=== PATIENT | male | born 1970 | race Caucasian/White ===

== ENCOUNTER 2017-09-12 12:37 | Observation (INO) | payer OTHER ==
[~2017-09-12] VITALS: Ht 182.9 cm; Wt 98.1 kg
[~2017-09-12 12:37] MED LIST: GLUC500C5 PO; MULTCAP PO; TAMBOCOR PO; TYLE325T5 PO; XARE20TA PO; [UNRECOGNIZED DRUG - CODE] PO
[2017-09-12] MEDS ORDERED: ONDANSETRON 4 MG TAB (S0181) PO PRN (13:00)
[2017-09-12] MEDS ORDERED: ACETAMINOPHEN TAB 650MG DOSE (2X325MG) PO PRN (13:00)
[2017-09-12 15:15] VITALS: BP 150/96
[2017-09-12] MEDS ORDERED: FLUO20CA19 PO (16:42)
[2017-09-12] MEDS ORDERED: ATOR40TA75 PO (16:42)
[2017-09-12] MEDS ORDERED: NITR4TASL SL (16:42)
[2017-09-12 17:03] VITALS: BP 172/89
[2017-09-12] MEDS ORDERED: NITROGLYCERIN 0.4 MG SUBL TABLET SL PRN (17:30)
[2017-09-12] MEDS: ASPIRIN 81 MG ENTERIC TAB PO SCH (18:00)
--- NOTE | 2017-09-12 18:34 | CR ---
DATE OF CONSULTATION: 09/12/2017 REFERRING PROVIDER: Dr. Sanya Ramsay. PRIMARY FISH CULTURIST: Dr. Dhruv Moreno. REASON FOR CONSULTATION: Syncope, probable pacemaker malfunctioning. HISTORY OF PRESENT ILLNESS: A 46-year-old male with a history of paroxysmal atrial fibrillation and permanent pacemaker implantation on 08/30/2014, by Dr. Moreno. Has been doing well until yesterday in the evening at 8:15-8:30, when he suddenly passed out for 30 seconds without any actual symptoms of chest pain or palpitations. He woke up , then collapsed again. Since those two episodes, according to the , his mental status has changed. The patient has been delusional and his conversations have not been appropriate. He was brought to the emergency room (ER) at [facility] earlier this morning and his blood pressure was markedly elevated according to his . He had a chest CT as well as chest x-ray done, and they were benign. The patient was transferred to [facility] in order to check the pacemaker and his syncope. They thought that the pacemaker was having problem with sensing. He was admitted temporarily to the intensive care unit (ICU) then at this present time, he is in the progressive care unit (PCU). Cardiology consult was called. Case was discussed earlier with the ER provider from [facility]. According to his note, his blood pressure upon arrival there was 185/111, with a pulse of 117, respirations 18, and his temperature was 99.8 degrees Fahrenheit with an oxygen saturation of 97% on room air. His complete blood count (CBC) was normal, and his basic metabolic panel (BMP) revealed a serum potassium of 3.4 with a serum glucose of 123. Mr. Shaka Gudino was lying supine in bed in no acute distress at rest when I saw him, and his was at bedside, as well as a nurse. His responses are not quite appropriate and according to the , there was no loss of sphincter control. She is not quite sure whether he had seizures or not. Prior to that event yesterday, the patient was doing fine without chest pain or shortness of breath, but was supposed to see electrophysiology (EP) for ablation. There is no prior history of cerebrovascular accident (CVA), syncope or near syncope. There is no prior history of coronary artery disease. There is no cough or hemoptysis. There is no nausea, vomiting or diarrhea, melena or hematemesis. He is does have a headache that started after the fall. There is no focal manifestation. There is no active swelling or redness of the joints. He has a past medical history positive for hypertension, but lately has not been taking medications. He also has a history of hyperlipidemia and has been on atorvastatin, atrial fibrillation and has been on aspirin, presumably sick sinus syndrome and pacemaker implantation, posttraumatic stress disorder (PTSD), anxiety disorder. There is no history of obstructive coronary artery disease, myocardial infarction, congestive heart failure, significant valvular heart disease, cerebrovascular accident (CVA), diabetes mellitus, kidney disease. MEDICATIONS AT HOME: - aspirin 81 mg by mouth daily - atorvastatin 40 mg by mouth daily - fluoxetine tablets by mouth daily - ketoconazole PAST SURGICAL HISTORY: Positive for permanent pacemaker implantation. SOCIAL HISTORY: The patient lives with his and there is no report of smoking or ethyl alcohol (EtOH) abuse. ALLERGIES: He has no known drug allergies. ADVANCE DIRECTIVES: The patient is a FULL CODE. PHYSICAL EXAMINATION: The patient is alert and awake in no acute distress at rest. His vital signs on the floor reveal a blood pressure last time of 172/89 with a pulse of 94, respirations 18, and his maximum temperature is 98.3 degrees Fahrenheit with an oxygen saturation of 95% on room air. HEAD: Atraumatic. NECK: Supple. No carotid bruits heard. LUNGS: Clear bilaterally without any wheezing or crackles. HEART: Examination revealed regular heart sounds without gallops. The point of maximum impulse (PMI) is not displaced. There is no rub. I could not appreciate any murmurs. ABDOMEN: Soft, and bowel sounds are active. EXTREMITIES: Reveal no pitting edema. PERIPHERAL PULSES: Dorsalis pedis are +2 and equal. NEUROLOGIC: Examination is negative for focal deficits. Pupils were equal and reactive to light. LABORATORY DATA: WBC done outside of this facility at [facility], revealed a WBC of 9.4, hemoglobin 15.8, hematocrit 44.5, and platelets 221,000. BMP revealed a sodium of 139, potassium 3.4, chloride 105, CO2 24, BUN eight, creatinine 1.0, GFR more than 60, glucose 141, calcium 10.0. Serum magnesium was 2.2. One set of troponin was 0.23, with a range of 0.0 and 0.09. Rhythm strips were reviewed and revealed intermittent AV sequential permanent pacemaker activity with some spikes coming on the T-wave that was thought to be maybe related to a sensing problem. EKG outside of the facility revealed a sinus tachycardia at 109 beats per minute , and nonspecific ST-T abnormalities done this morning, 09/12/2017, at 10:23:30. Findings consistent with incomplete right bundle branch block. [place] is deviated down to the left and there is some poor R-wave progression noted in the right precordial leads. IMPRESSION: A 46-year-old male with a history of paroxysmal atrial fibrillation passed out twice yesterday in the evening around 8:30, and after that started having some changes in his behavior and mental status. His blood pressure was markedly elevated when he went earlier today to [facility]. There is a questionable pacemaker malfunction but seems to be working fine, and is supposed to be checked this evening by the patient service representative. His physical examination is benign, as well as his labs, but revealed mild hypokalemia. Blood sugar is mildly elevated. I am concerned about mini-strokes particularly in the setting of markedly elevated blood pressure, paroxysmal atrial fibrillation, even though he was on aspirin, but has not been quite compliant. Case was discussed with his hospitalist and neurology consult will be called. In the meantime, he was started on small dose of amlodipine, and he will be restarted on his aspirin as well as his atorvastatin. We will await for neurology before starting him on stronger anticoagulation therapy. He also might benefit from psychiatric evaluation, he does have a history of posttraumatic stress disorder (PTSD) and anxiety disorder. It was a pleasure to participate in the care of Mr. Shaka Gudino for his underlying cardiac condition. We will continue to monitor him along with you over the weekend, and if he is still at the hospital on Thursday, I will ask Dr. Carrasco to see him. BOB
--- NOTE | 2017-09-12 19:09 | HPEPDOC ---
[facility] Medical History & Physical Date of Admission Sep 12, 2017 Other Provider PCP: Kar Brothers DO Attending Physician: MESHA DOUGHERTY MD History and Physical CHIEF COMPLAINT: Syncope and altered mentation. HISTORY OF PRESENT ILLNESS: 46-year-old male accepted on transfer from [facility] with previous history of atrial fibrillation attempted ablation and pacemaker [place] [address] Moreno's service. The patient is slightly confused on his presentation to the emergency department [facility] and why he. He has been transferred to [facility]. According to the medical records. Last evening he had been playing cards with his suddenly didn't feel right, walked out onto the porch which time he promptly had loss of consciousness. Doubt seizure activity. His felt that he was unresponsive for about 30 seconds. Since this episode. He has been hypervigilant/manic at times. Is able to correctly identify person, place, time. And at others times will make bizarre statements. He does have prior service with history of PTSD, generalized anxiety disorder, adjustment disorder in addition to his other medical history as listed below. He denies any complaints of headache, Lantus, dizziness, blurry vision, double vision, or change in his vision. No chest pain, palpitations, shortness of breath, productive sputum, cough, hemoptysis, nausea, vomiting or diarrhea. And feels he's had a good appetite. He denies regular alcohol use, does drink occasionally on weekends. He denies any drug use. However, I did notice that his tox screen from [facility] was positive for THC. Additional information from family revealed that: He had tried some marijuana from a neighbor to attempt to self treat his generalized anxiety symptoms last evening. Ten minutes afterwards, he became euphoric and stumbled out onto the porch. Family noticed his behavior and he was unsteady and fell with questionable LOC or about a second. He then stood up and fell again with LOC less than 30 seconds. When he came to he was noted to have some bizarre statements and hypervigilance noted and he has not slept for greater than 24hrs at this point. PAST MEDICAL HISTORY: History of atrial fibrillation status post pacemaker placement. Hypertension. Lipidemia. Hyperbilirubinemia PTSD. Generalized anxiety disorder. Adjustment disorder PAST SURGICAL HISTORY: Pacemaker insertion 2013 SOCIAL HISTORY: , lives at home with his . Denies regular alcohol use except for occasionally on weekends. Denies tobacco use. Denies illicit drug use. FAMILY HISTORY: Noncontributory ALLERGIES: No known drug allergies REVIEW OF SYSTEMS: CONSTITUTIONAL: No fever, chills, weight loss, nausea or vomiting . HEENT: No headache, lightheadedness, blurred or loss of vision. No difficulty with speech or swallow. CARDIOVASCULAR: No chest pain, palpitations, paroxysmal nocturnal dyspnea or lower extremity edema RESPIRATORY: No cough, productive sputum, wheeze or hemoptysis GENITOURINARY: No dysuria, frequency, or discharge MUSCULOSKELETAL: No bone, muscle or joint pain. GASTROINTESTINAL: No Nausea, variating, change in appetite. Bowel movements are regular without hematochezia or melena. No bladder or bowel incontinence. SKIN: No complaint of lesions, abrasions or rashes NEUROLOGICAL: No blurred vision, headaches, paraesthesias or paralysis, however , he is unable to recall the events of last evening. PSYCHIATRIC: As per HPI. No suicidal ideations. ENDOCRINE: Denies history of diabetes or thyroid disorder. No history of endocrine abnormalities. HEMATOLOGIC/ONCOLOGY: No history of bleeding or bruising disorder. No history of venous thromboembolism. LYMPHATIC: No lumps, bumps or swelling of neck, axilla or groin. No night sweats or weight loss. HOME MEDICATIONS: Please see below. PHYSICAL EXAMINATION: VITAL SIGNS: See below GENERAL APPEARANCE: No acute distress. Alert, oriented, able to answer questions appropriately and then will have an occasional bizarre statements.. HEENT: PERRLA, ecchymosis/bruising noted below the left eyelid. Extraocular movement is intact. Throat clear. Neck supple, no JVD. CARDIOVASCULAR: Regular rate and rhythm. LUNGS: clear to auscultation bilaterally. ABDOMEN: Soft, anteroseptal positive bowel sounds, masses or rebound. MUSCULOSKELETAL: Good range of motion. No bony or joint deformities. EXTREMITIES: No edema, no calf tenderness. NEUROLOGICAL: Cranial nerves II through XII grossly intact. No gross motor sensory deficits. PSYCHIATRIC: Again. He does appear to be alert and oriented, but will have an occasional bizarre statement. LABORATORY DATA: See below IMAGING: I reviewed imaging from [facility]: Head CT demonstrated no acute abnormality, chest x-ray no acute abnormality as well. Twelve-lead EKG: Sinus tachycardia with ventricular rate of 108, no acute ST-T wave abnormalities IMPRESSION: 46-year-old gentleman with history of atrial fibrillation status post pacemaker placement 2 years ago, accepted on transfer from [facility] due to syncope/loss of consciousness needing pacemaker interrogation. However, since his event, he has had some bizarre statements and may need further evaluation by neurology. PROBLEM LIST: 1. Syncopal episode with loss of consciousness. 2. Metabolic encephalopathy with acute psychosis 3. History of atrial fibrillation, status post pacemaker placement needing further interrogation. 4. Contusion lower left eye with no evidence of orbital fracture. 5. Hypertension. 6. Lipidemia. 7. Hyperbilirubinemia 8. PTSD. 9. Generalized anxiety disorder. 10. Adjustment disorder PLAN: Patient be admitted to PCU on telemetry. Continue his home medications. Consult cardiology, and will need pacemaker interrogation. Arrangements are made for later this evening. Consult neurology. His initial head CT done at [facility] did not indicate any acute intra-cranial issues. However, we'll need to clarify with [employer] whether or not he can have an MRI, MRA of the brain. If he is unable to have a brain MRI, we may consider a repeat CT scan of the head tomorrow morning. Regarding his bizarre statements and hypervigilance, he does have a significant history of PTSD/generalized anxiety disorder/adjustment disorder, acutely he appears to have psychosis without suicidality. Consult Psych: Spoke to Psychiatry, agreed with starting Risperidone 0.25 mg bid and will see patient in morning (sooner if he acts up this evening). DVT PROPHYLAXIS: Lovenox subcutaneous CODE STATUS: Full code DISPOSITION: Anticipate he'll be here greater than 2 midnights. Appreciate further input from cardiology and neurology. And may need to consider psychiatric evaluation tomorrow as well. Addenedum: Repeat Head CT without contrast in morning, and ordered EEG. Vital Signs Vital Signs Date Time Temp Pulse Resp B/P (MAP) Pulse Ox O2 Delivery O2 Flow Rate FiO2 09/12/17 18:01 94 148/100 09/12/17 17:03 98.3 18 95 Room Air Laboratory Data CBC/BMP [facility] labs from 09/12/2017: WBC 9.4, hemoglobin 15.6, hematocrit 44.5, platelets 221. Sodium 139, potassium 3.4, chloride 105, bicarbonate 24, BUN 8, creatinine 1.0, glucose 141, magnesium 2.2. CK 125. Troponin I 0.023. Tox screen positive for THC, otherwise negative Home Medications Scheduled Atorvastatin Calcium (Atorvastatin Calcium) 40 Mg Tab, 40 MG PO DAILY Fluoxetine Hcl (Fluoxetine HCl) 20 Mg Cap, 20 MG PO DAILY Scheduled PRN Nitroglycerin (Nitrostat) 0.4 Mg Subl, 0.4 MG SL NITRO PRN for CHEST PAIN Allergies Coded Allergies: No Known Allergies (Unverified , 04/25/14) FRANCISCO JAVIER GILLIS DO Sep 12, 2017 19:09
[2017-09-12] MEDS: risperiDONE 0.25 MG TAB PO SCH (19:46)
[2017-09-12 19:50] VITALS: BP 133/73
[2017-09-12] MEDS: DOCUSATE SODIUM 100 MG CAP PO SCH (20:45)
[2017-09-12 23:46] VITALS: BP 150/98
[2017-09-13 04:00] VITALS: BP 160/77
[2017-09-13 04:38] LABS: MEAN CORPUSCULAR HEMOGLOBIN 30.9 pg (27.0-33.0); MEAN CORPUSCULAR HGB CONC 34.8 g/dl (32.0-36.5); MEAN CORPUSCULAR VOLUME 88.6 fl (80.0-96.0); PLATELET COUNT, AUTOMATED 210 10^3/uL (150-450); RED CELL DISTRIBUTION WIDTH 12.5 % (11.5-14.5); WHITE BLOOD COUNT 7.2 10^3/uL (4.0-10.0)
[2017-09-13 04:52] LABS: ALBUMIN 4.1 GM/DL (3.2-5.2); ANION GAP 8 MEQ/L (8-16); BLOOD UREA NITROGEN 7 MG/DL (7-18); CALCIUM LEVEL 9.2 MG/DL (8.5-10.1); CARBON DIOXIDE LEVEL 26 MEQ/L (21-32); CHLORIDE LEVEL 107 MEQ/L (98-107); CREATININE FOR GFR 0.88 MG/DL (0.70-1.30); GLOMERULAR FILTRATION RATE > 60.0 (>60); GLUCOSE, FASTING 98 MG/DL (70-105); PHOSPHORUS LEVEL 3.8 MG/DL (2.5-4.9); SODIUM LEVEL 141 MEQ/L (136-145)
[2017-09-13 08:00] VITALS: BP 140/78
[2017-09-13] MEDS: ATORVASTATIN 20 MG TAB PO SCH (08:45)
[2017-09-13] MEDS: DOCUSATE SODIUM 100 MG CAP PO SCH ×2 (08:45→20:02)
[2017-09-13] MEDS: FLUoxetine 20 MG CAP PO SCH (08:46)
[2017-09-13] MEDS: risperiDONE 0.25 MG TAB PO SCH (08:46)
[2017-09-13] MEDS: ASPIRIN 81 MG ENTERIC TAB PO SCH (08:46)
[2017-09-13] MEDS ORDERED: HALOPERIDOL 2 MG TAB PO SCH (09:00)
[2017-09-13] MEDS: ENOXAPARIN 40 MG/0.4 ML SYRINGE (J1650) SC SCH (09:28)
[2017-09-13] MEDS ORDERED: LORazepam 2 MG/ML VIAL (J2060) IV STA (09:50)
--- NOTE | 2017-09-13 09:51 | REP ---
REASON: Altered mental status. TECHNIQUE: 4.5 mm contiguous transaxial sections were obtained from the skull base to the cerebral convexities with thin cuts through the posterior fossa without the administration of intravenous contrast. FINDINGS: The ventricles and sulci are consistent with the patient's age. There are no extra-axial fluid collections. There is no mass effect. The deep cerebral white matter is consistent with the patient's age. The orbital and petrous structures, cerebellopontine angles, and posterior fossa are unremarkable. The sella turcica, cavernous, and paracavernous structures are essentially unremarkable. The visualized portions of the paranasal sinuses and mastoid air cells are clear. Images of the skull base show no gross abnormality. IMPRESSION: Essentially unremarkable CT examination of the brain. Signed by Freddy Lockett DO 09/13/2017 09:52 A
[2017-09-13] MEDS ORDERED: HALOPERIDOL 5 MG/ML VIAL (J1630) IV ONE (10:00)
[2017-09-13] MEDS ORDERED: LORazepam 2 MG/ML VIAL (J2060) IV PRN (10:00)
--- NOTE | 2017-09-13 11:37 | IPNPDOC ---
Subjective Date Seen The patient was seen on 09/13/17. Subjective Chief Complaint/HPI The patient is a 46-year-old male admitted with a reason for visit of Pacemaker Malfunction. Events since last encounter Patient remains confused thinks he is in [place] in a [facility] , recognizes his , but talking about unrelated things, laughing inappropriately. Does not know about anything that happened at home. Entering into other patients rooms, reached across the nursing desk and drank one of the nurses coffee. Behaving inappropriately. Objective Physical Examination General Exam: Positive: Alert, Cooperative, No Acute Distress Eye Exam: Positive: PERRLA, Conjunctiva & lids normal, EOMI, Negative: Sclera icteric ENT Exam: Positive: Atraumatic, Mucous membr. moist/pink, Pharynx Normal Neck Exam: Positive: Supple, Negative: JVD, thyromegaly Chest Exam: Positive: Clear to auscultation, Normal air movement Heart Exam: Positive: Rate Normal, Regular Rhythm, Normal S1, Normal S2, Negative: Murmurs, Rubs Telemetry: Positive: No significant arrhythmia Extremity Exam: Positive: Normal pulses, Negative: Clubbing, Cyanosis, Edema Skin Exam: Positive: Nl turgor and temperature, Negative: Rash, Breakdown Neuro Exam: Positive: Normal Gait, Strength at 5/5 X4 ext, Normal Tone, Cranial Nerves 3-12 NL Assessment /Plan Problems (1) Acute encephalopathy Status: Acute Problem Text: could be related to marijuana use vs primary psychiatric disease. CT head x 2 negative for nay acute stroke. will continue with haldol and aivan. (2) Acute psychosis Status: Acute Problem Text: CT head negative. unknwon whether primary psychiatric disorder or not . Psych to evaluate. (3) A-fib Status: Chronic Problem Text: paroxysmal afib. Has pacemaker in place. (4) Pacemaker malfunction Status: Resolved Problem Text: pacemaker interogated no abnormality (5) PTSD (post-traumatic stress disorder) Status: Chronic (6) Hyperlipidemia Status: Chronic (7) Hypertension Status: Chronic Problem Text: has not been taking his medications. Plan/VTE VTE Prophylaxis Ordered?: Yes VS, I&O, 24H, Fishbone Vital Signs/I&O Vital Signs Date Time Temp Pulse Resp B/P (MAP) Pulse Ox O2 Delivery O2 Flow Rate FiO2 09/13/17 08:46 79 140/78 09/13/17 08:00 97.6 18 18 Room Air I&O- Last 24 Hours up to 6 AM 09/14/17 06:00 Intake Total 0 ml Balance 0 ml Laboratory Data 24H LABS Laboratory Tests 2 09/13/17 04:02: Nucleated Red Blood Cells % (auto) 0.0, Blood Urea Nitrogen 7, Creatinine 0.88, Sodium Level 141, Potassium Level 4.0, Chloride Level 107, Carbon Dioxide Level 26, Anion Gap 8, Glomerular Filtration Rate > 60.0, Calcium Level 9.2, Phosphorus Level 3.8, Albumin 4.1 CBC/BMP Laboratory Tests 09/13/17 04:02 Red Blood Count 4.99, Mean Corpuscular Volume 88.6, Mean Corpuscular Hemoglobin 30.9, Mean Corpuscular Hemoglobin Concent 34.8, Red Cell Distribution Width 12.5 , Anion Gap 8 MESHA DOUGHERTY MD Sep 13, 2017 11:37
[2017-09-13] MEDS ORDERED: HALOPERIDOL 5 MG/ML VIAL (J1630) IM STA (12:43)
[2017-09-13] MEDS ORDERED: LORazepam 2 MG/ML VIAL (J2060) IM STA (12:43)
[2017-09-13] MEDS ORDERED: LORazepam 2 MG/ML VIAL (J2060) IM PRN (13:15)
[2017-09-13] MEDS ORDERED: HALOPERIDOL 5 MG/ML VIAL (J1630) IM PRN (13:15)
[2017-09-13] MEDS ORDERED: HALOPERIDOL 2 MG TAB PO PRN (13:15)
[2017-09-13] MEDS ORDERED: diphenhydrAMINE INJ 50MG/ML VIAL (J1200) IM PRN (13:15)
--- NOTE | 2017-09-13 13:21 | MHCRPDOC ---
[facility] Consultation Consultation DATE OF CONSULTATION: 09/13/17 CONSULTATION REQUESTED BY: Primary team REASON FOR CONSULTATION: AMS Patient's was at bedside, answered most of the questions: 46 yo M, PMH of cardiomegaly/Afib with pacemaker, HLD, HTN, PSH of PTSD, anxiety , no prior psychiatric hospitalization, presents for confusion. Medical team initially thought confusion was due to pacemaker malfunction, but pacemaker was found to be working properly. Psych consulted due to continued confusion. Patient was confused, illogical, child-like, disinhibited. lying in bed, occasionally throwing things for fun at this provider. The patient made grandiose, kendell-like remarks about , and about the oneness of people. answered most of the questions: The patient was playing cards with his and a few friends, and they were smoking marijuana through a vaporizer. Per , they only smoked a few hits and no one in the group got high. The patient was not high after smoking. However, 5 minutes after smoking, the patient was walking towards the door and fell without clear motor cause, to his side. Patient hit is L face on a surface , lost consciousness, but regained consciousness seconds later. denies seeing any clonic movements and patient did not urinate. notes that after the patient regained consciousness, he held his arm tight to his chest for a while, which she thought was seizure like. The patient became euphoric, laughing inappropriately at times for the next few hours, slightly confused and odd. He was ambulating, using the bathroom, and performing physical activities without a problem. Alertness level was normal. She thought that the symptoms would go away with sleep. The next day the patient become more illogical, irritable, disinhibited and was brought to the hospital. states that the patient talked about dying and coming back to life, about seeing visions of a grindstone, claiming that he was God, acting kendell-like and telling her that one day she will understand. notes that the marijuana was unlikely to be laced as a friend grew it himself, and no one else become significantly mentally altered. The patient has no drug abuse history. Has never taken any psychiatric medications except prozac several years ago for depression, with history of SI at that point, but no recent psychiatric medications. Was diagnosed from PTSD from his service. Does not see currently outpt psychiatrist. Of note, after the interview, the patient was walking around on the unit, agitated, making demanding illogical remarks, and knocked two items from the counter onto the floor. PAST MEDICAL HISTORY: Afib, pacemaker, HLD, HTN FAMILY HISTORY: Mother has bipolar do PERSONAL AND SOCIAL HISTORY: The patient was born and raised in [place], , 2 children, works in a personal financial services job, served in the in the past. SUBSTANCE ABUSE HISTORY: Smoking: used to abuse ETOH, 6 drinks daily, no current ETOH abuse, no cigs/ drug use LEGAL HISTORY: did not assess MENTAL STATUS EXAMINATION: Behavior: disinhibited, child-like, odd, throwing food items at provider, impulsive Speech normal Thought processes including: illogical Thought content: odd beliefs, confabulatory Judgment: limited Insight: limited Orientation to AAOx2, believes it is the wrong date and year Attention span and concentration: impaired attention, easily distracted, cannot say a series of 3 number backwards, can say a series of 5 numbers forward, cannot perform subtraction Mood: OK Affect: from euthymic to irritable, inappropriately joking or laughing at times DIAGNOSIS: 1. 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 impulsive, and grandiose. His initial presentation, on the day he smoked the marijuana, seems to be manic. He does not have the disorganized speech and behavior, or the negative symptoms that are typical of schizophrenia. Patient's presentation is unlike the high from cannabis inhalation. His condition is not likely to be substance induced psychosis given its timing, its severity, and its character. More likely a right frontal lesion of some kind (eg. seizure). PLAN: 1. Haldol 2 mg TID for psychotic, disinhibited behaviors 2. Haldol 2 mg po q6 PRN for mild agitation 3. Haldol 5 mg / Ativan 2 mg / Benadryl 50 mg q6 IM PRN for severe agitation Other medications per primary team - Psych will follow Vital Signs Vital Signs Date Time Temp Pulse Resp B/P (MAP) Pulse Ox O2 Delivery O2 Flow Rate FiO2 09/13/17 08:46 79 140/78 09/13/17 08:00 97.6 18 18 Room Air Laboratory Data 24H Labs Laboratory Tests 2 09/13/17 04:02: Nucleated Red Blood Cells % (auto) 0.0, Blood Urea Nitrogen 7, Creatinine 0.88, Sodium Level 141, Potassium Level 4.0, Chloride Level 107, Carbon Dioxide Level 26, Anion Gap 8, Glomerular Filtration Rate > 60.0, Calcium Level 9.2, Phosphorus Level 3.8, Albumin 4.1 Home Medications Current Medications Current Medications Acetaminophen (Tylenol Tab) 650 mg Q4HP PRN PO MILD PAIN OR FEVER; Start at 13:00; Stop 10/12/17 at 12:59 Amlodipine Besylate (Norvasc) 2.5 mg DAILY PO Last administered on 09/13/17 08:46; Start 09/12/17 at 18:00; Stop 10/12/17 at 17:59 Aspirin (Ecotrin) 81 mg DAILY PO Last administered on 09/13/17 08:46; Start 09/12/17 at 18:00; Stop 10/12/17 at 17:59 Atorvastatin Calcium (Lipitor) 40 mg DAILY PO Last administered on 09/13/17 08:45; Start 09/13/17 at 09:00; Stop 10/13/17 at 08:59 Docusate Sodium (Colace) 100 mg BID PO Last administered on 09/13/17 08:45; Start 09/12/17 at 21:00; Stop 10/12/17 at 20:59 Enoxaparin Sodium (Lovenox) 40 mg DAILY SC ; Start 09/13/17 at 09:00; Stop at 08:59 Fluoxetine HCl (PROzac) 20 mg DAILY PO Last administered on 09/13/17 08:46; Start 09/13/17 at 09:00; Stop 10/13/17 at 08:59 Haloperidol (Haldol) 2 mg TID PO ; Start 09/13/17 at 09:00; Stop 10/13/17 at 08: 59 Home Med (Med Rec Complete!) ASDIRECTED XX ; Start 09/12/17 at 16:45; Stop 09/12/17 at 16:57; Status DC Lorazepam (Ativan) 2 mg Q6HP PRN IV AGITATION; Start 09/13/17 at 10:00; Stop 09/20/17 at 09:59 Lorazepam (Ativan) 2 mg STAT STAT IV ; Start 09/13/17 at 09:50; Stop at 09:54; Status DC Nitroglycerin (Nitrostat (1/ 150)) 0.4 mg Q5MP PRN SL CHEST PAIN; Start at 17:30; Stop 10/12/17 at 17:29 Ondansetron HCl (Zofran) 4 mg Q6HP PRN PO NAUSEA OR VOMITING; Start 09/12/17 at 13:00; Stop 09/13/17 at 09:55; Status DC Risperidone (RisperDAL) 0.25 mg BID PO Last administered on 09/13/17t 08:46; Start 09/12/17 at 21:00; Stop 09/13/17 at 09:55; Status DC Scheduled Atorvastatin Calcium (Atorvastatin Calcium) 40 Mg Tab, 40 MG PO DAILY, (Reported ) Fluoxetine Hcl (Fluoxetine HCl) 20 Mg Cap, 20 MG PO DAILY, (Reported) Scheduled PRN Nitroglycerin (Nitrostat) 0.4 Mg Subl, 0.4 MG SL NITRO PRN for CHEST PAIN, ( Reported) Allergies Coded Allergies: No Known Allergies (Unverified , 04/25/14) MARY KAY DE LA TORRE MD Sep 13, 2017 13:21
--- NOTE | 2017-09-13 15:42 | CR ---
DATE OF CONSULTATION: 09/13/2017 REQUESTING PROVIDER: Dr. Sanya Ramsay. REASON FOR CONSULTATION: Altered mental status. HISTORY OF PRESENT ILLNESS: Shaka Gudino is a 46-year-old male with past medical history significant for adjustment disorder, posttraumatic stress disorder (PTSD), severe anxiety, presenting with chief complaint of being confused. The patient was noted to be his normal self prior to yesterday evening. Yesterday the patient took his second hit of marijuana. The patient's acquired it from a friend who grows it themselves. The patient's states that the marijuana was pure without any other contaminants to her belief. The patient used to marijuana. With in 10 minutes, the patient started to notice shortness of breath and feeling sick to his stomach. The patient stood up and walked outside of the home. When the patient walked through the doorway, he suddenly started to collapse. His [id number] tried to catch the patient; however, she was unsuccessful and the patient still ended up falling to his face. He has a slight bruise under his left eye. The patient did lose consciousness for approximately 1-2 seconds and then was able to stand back up immediately. He was conversive during that time. The patient then tried to sit down himself but then collapsed again to the ground. He was again without consciousness for at least few seconds it seems. The patient was then noted to open his eyes and immediately start talking to everyone around him. His describes the behavior as euphoric, telling everyone that he understands the meaning of life. He states that he saw his father and understands the reason behind life, liberty and justice for all he states. The patient is noted to state a few bizarre sentences at times. He admits that he is seeing and hearing people that are . Sometimes he sees them for a split second and then they disappear. The patient is aware that this is not normal. The patient is slightly anxious and also the patient appears to be slightly aggressive in demeanor. He is confrontational at times during certain comments that he may make. The patient denies having any headache. He denies ever having any seizures before this. The patient denies any other forms of head trauma. Head CT was obtained during his admission at [facility] which was negative for any acute intracranial process. MRI is not possible as the patient has a pacemaker. Cardiology was consulted and the pacemaker was interrogated and was found to be without any flaws. The patient is quite upset that Dr. Moreno himself did not physically come into the hospital to see him despite being told numerous times that Dr. Moreno is not cold reduction roller. I have recommended to Dr. Sanya Ramsay that the patient should likely have psychiatry see him and evaluate him delirium with psychosis. The patient is acutely psychotic. I recommend to start risperidone 0.25 mg by mouth twice a day with first dose now. Initially the patient refused to consider this type of medication but then agreed that it may benefit him. His is able to encourage him to participate in his medical care. PAST MEDICAL HISTORY: 1. Adjustment disorder. 2. PTSD. 3. Anxiety. 4. History of syncope. 5. History of pacemaker placement. 6. Hypertension. 7. Hyperlipidemia. 8. Atrial fibrillation; has been on aspirin. 9. Presumably sick sinus syndrome status post pacemaker placement. PAST SURGICAL HISTORY: Positive for permanent pacemaker implantation. HOME MEDICATIONS: - aspirin 81 mg daily - atorvastatin 40 mg daily - fluoxetine by mouth daily - ketoconazole topical as needed ALLERGIES: No known drug allergies SOCIAL HISTORY: The patient initially denies use of recreational drugs, though when asked specifically about the urine toxicology, he does admit that he used marijuana the night before. The patient states he drinks alcohol occasionally. He denies use of tobacco. FAMILY HISTORY: Noncontributory. REVIEW OF SYSTEMS: 14-point review of systems obtained and negative except as per history of present illness (HPI). PHYSICAL EXAMINATION: Blood pressure is 172/89, later found to be 148/100, pulse rate 94, respiratory rate is 18, temperature is 98.3 degrees Fahrenheit, oxygenation 95% on room air. The patient is awake, alert, oriented to person, place, time. Speech, language, comprehension, and repetition are intact. The patient's behavior seems to be bizarre with bizarre comments being made. At times he is actively hallucinating. He does state that he hears and sees people around him at times. Pupils are 3 mm, round and reactive to light. Extraocular motion intact without nystagmus. Sensation V1, V2, V3 is intact to light touch. No facial asymmetry on activation palate elevates symmetrically. Tongue is midline. No weakness sternocleidomastoids bilaterally. Hearing is subjectively equal to finger rub. No pronator drift. Strength is 5/5 including a bilateral deltoids, biceps, triceps, handgrip, iliopsoas, quadriceps, anterior tibialis. Deep tendon reflexes at 2+ throughout. Babinski signs are absent throughout. Sensory is intact to light touch in all four extremities. Coordination: Normal [id number], cucn-ad-lcrn without any signs of ataxia, dysmetria. Gait is normal. Romberg test negative. ASSESSMENT: 1. Acute psychosis, altered mental status, starting with delirium. 2. Marijuana use within the last 24 hours. The patient has not slept in approximately 36 hours. 3. Less likely seizure, less likely stroke. PLAN: 1. MRI not possible. Repeat head CT in the morning. 2. For acute psychosis, start risperidone 0.25 mg by mouth twice a day. 3. Recommend psychiatry consultation. 4. So far, complete blood count (CBC), complete metabolic profile (CMP) found to be within normal limits. Troponin slightly elevated. Cardiology is following. 5. Can obtain an electroencephalogram (EEG) on Thursday. Can consider earlier EEG over the weekend as well. 6. Case discussed with Dr. Sanya Ramsay.
[2017-09-13] MEDS: HALOPERIDOL 2 MG TAB PO SCH ×2 (16:00→20:02)
[2017-09-13 16:30] VITALS: BP 147/84
[2017-09-13 19:31] VITALS: BP 130/80
--- NOTE | 2017-09-13 21:51 | IPN ---
DATE: 09/13/2017 SUBJECTIVE: Mr. Shaka Gudino was seen earlier today, in no acute distress. He was transferred from [facility] Emergency Room (ER) yesterday after one episode of syncope, and they thought that the pacemaker was not working well, not sensing. This was checked here yesterday in the evening, and the pacemaker is functioning well. He went initially to the ER because of two episodes of syncope on the day prior to his visit around 8:30 in the evening. Upon arrival, his blood pressure was elevated. When I saw him yesterday, his blood pressure was elevated and he was restarted on his antihypertensive medication. He was started on a small dose of amlodipine. He also was restarted on his current medications. After his syncopal episode, he has developed some changes in his mental status that was new for him according to his . He does have a history of atrial fibrillation and has not been taking any medication for that, and his blood pressure was markedly elevated upon arrival at the hospital. For this reason, cerebrovascular accident (CVA) is entertained and a neurologic consult was called. The patient had a CT scan of the brain done yesterday while at [facility] and it was reported as normal. Another CT scan done earlier today here at [facility] also was essentially unremarkable. There is no report of chest pain or shortness of breath, or palpitations. He has not been passing out since those two episodes. His blood pressure this morning has improved. OBJECTIVE: On physical examination, the patient is alert and awake, in no acute distress at rest, and his last blood pressure today was 140/78 with a pulse of 79, respirations 18, and his maximum temperature is 97.6 degrees Fahrenheit with oxygen saturation of 97% on room air. Examination of the head is atraumatic. Neck is supple. No jugular venous distention (JVD). Lungs were clear bilaterally on auscultation without any wheezing or crackles. The heart examination revealed normal S1, S2 without gallops. The point of maximum impulse (PMI) is not displaced. There is no rub. Abdomen is unremarkable. Extremities reveal no pedal edema. Neurological examination is negative for focal deficit. LABORATORY DATA: CBC revealed a WBC of 7.2, hemoglobin 15.4, hematocrit 44.2, and platelets 210,000. BMP revealed a sodium of 141, potassium 4.0, chloride 107, CO2 26, BUN seven, creatinine 0.88, GFR more than 60, fasting glucose 98. IMAGING: Head CT without contrast done today, 09/13/2017, revealed unremarkable CT scan of the brain. IMPRESSION: Mr. Shaka Gudino seems to be stable from a cardiac point of view. The etiology of his syncope is not quite clear. The change in his mental status is being addressed and psychiatry is going to come for further evaluation today, and he is being also seen by neurology. He has been back on his medications, and now on amlodipine for blood pressure. He is back on his atorvastatin and his aspirin, and he is on deep venous thrombosis (DVT) prophylaxis. An echocardiogram was ordered and is pending. We will continue current cardiac medications and starting tomorrow, 09/14/2017, Dr. Carrasco can be called if there is any input. He has been going to Dr. Carrasco/Dr. Moreno office. It seems also that he has seen an treasury manager in [place], [place]. Please do not hesitate to call if any questions. Case was discussed earlier today with his hospitalist. BOB
[2017-09-13 23:59] VITALS: BP 128/84
[2017-09-14 04:56] VITALS: BP 145/88
[2017-09-14 05:17] LABS: MEAN CORPUSCULAR HEMOGLOBIN 30.8 pg (27.0-33.0); MEAN CORPUSCULAR HGB CONC 34.6 g/dl (32.0-36.5); PLATELET COUNT, AUTOMATED 208 10^3/uL (150-450); RED CELL DISTRIBUTION WIDTH 12.2 % (11.5-14.5); WHITE BLOOD COUNT 6.4 10^3/uL (4.0-10.0)
[2017-09-14 05:34] LABS: ALBUMIN 4.1 GM/DL (3.2-5.2); ANION GAP 7 MEQ/L (8-16); BLOOD UREA NITROGEN 14 MG/DL (7-18); CALCIUM LEVEL 9.1 MG/DL (8.5-10.1); CARBON DIOXIDE LEVEL 27 MEQ/L (21-32); CHLORIDE LEVEL 107 MEQ/L (98-107); CREATININE FOR GFR 0.95 MG/DL (0.70-1.30); GLOMERULAR FILTRATION RATE > 60.0 (>60); GLUCOSE, FASTING 95 MG/DL (70-105); POTASSIUM SERUM 4.2 MEQ/L (3.5-5.1); SODIUM LEVEL 141 MEQ/L (136-145)
[2017-09-14 08:00] VITALS: BP 120/75
[2017-09-14] MEDS: ATORVASTATIN 20 MG TAB PO SCH (08:23)
[2017-09-14] MEDS: ASPIRIN 81 MG ENTERIC TAB PO SCH (08:23)
[2017-09-14] MEDS: HALOPERIDOL 2 MG TAB PO SCH ×4 (08:24→20:35)
[2017-09-14] MEDS: DOCUSATE SODIUM 100 MG CAP PO SCH ×2 (08:24→20:33)
[2017-09-14] MEDS: FLUoxetine 20 MG CAP PO SCH (08:24)
[2017-09-14] MEDS: ENOXAPARIN 40 MG/0.4 ML SYRINGE (J1650) SC SCH (08:25)
--- NOTE | 2017-09-14 09:35 | IPNPDOC ---
Subjective Date Seen The patient was seen on 09/14/17. Subjective Chief Complaint/HPI The patient is a 46-year-old male admitted with a reason for visit of Pacemaker Malfunction. Events since last encounter patient alert oriented and with appropriate behavior this morning. Slep most of the day after receiving haldol. However have refused any oral haldol. As per nurses calm and quiet overnight. says his mental status is back to baseline. Objective Physical Examination General Exam: Positive: Alert, Cooperative, No Acute Distress Eye Exam: Positive: PERRLA, Conjunctiva & lids normal, EOMI, Negative: Sclera icteric ENT Exam: Positive: Atraumatic, Mucous membr. moist/pink, Pharynx Normal Neck Exam: Positive: Supple, Negative: JVD, thyromegaly Chest Exam: Positive: Clear to auscultation, Normal air movement Heart Exam: Positive: Rate Normal, Regular Rhythm, Normal S1, Normal S2, Negative: Murmurs, Rubs Telemetry: Positive: No significant arrhythmia Extremity Exam: Positive: Normal pulses, Negative: Clubbing, Cyanosis, Edema Skin Exam: Positive: Nl turgor and temperature, Negative: Rash, Breakdown Neuro Exam: Positive: Normal Gait, Strength at 5/5 X4 ext, Normal Tone, Cranial Nerves 3-12 NL Assessment /Plan Problems (1) Acute encephalopathy Status: Resolved Problem Text: could be related to marijuana use vs primary psychiatric disease. CT head x 2 negative for any acute stroke. will continue with haldol and aivan prn due for EEG today. (2) Acute psychosis Status: Acute Problem Text: CT head negative. unknwon whether primary psychiatric disorder or not . Psych following. (3) A-fib Status: Chronic Problem Text: paroxysmal afib. 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 Plan/VTE VTE Prophylaxis Ordered?: Yes VS, I&O, 24H, Fishbone Vital Signs/I&O Vital Signs Date Time Temp Pulse Resp B/P (MAP) Pulse Ox O2 Delivery O2 Flow Rate FiO2 09/14/17 08:23 80 145/88 09/14/17 08:00 96.6 17 95 Room Air I&O- Last 24 Hours up to 6 AM 09/15/17 06:00 Intake Total 0 ml Output Total 200 ml Balance -200 ml Laboratory Data 24H LABS Laboratory Tests 2 09/14/17 04:47: Nucleated Red Blood Cells % (auto) 0.0, Blood Urea Nitrogen 14#, Creatinine 0.95 , Sodium Level 141, Potassium Level 4.2, Chloride Level 107, Carbon Dioxide Level 27, Anion Gap 7L, Glomerular Filtration Rate > 60.0, Calcium Level 9.1, Phosphorus Level 4.0, Albumin 4.1 CBC/BMP Laboratory Tests 09/14/17 04:47 Red Blood Count 5.20, Mean Corpuscular Volume 89.0, Mean Corpuscular Hemoglobin 30.8, Mean Corpuscular Hemoglobin Concent 34.6, Red Cell Distribution Width 12.2 , Anion Gap 7 L MESHA DOUGHERTY MD Sep 14, 2017 09:35
[2017-09-14 11:46] VITALS: BP 120/74
[2017-09-14 12:31] VITALS: BP 131/83
[2017-09-14 14:00] VITALS: BP 127/86
--- NOTE | 2017-09-14 20:24 | ECHO ---
DATE OF PROCEDURE: 09/14/2017 REFERRING PHYSICIAN: Sanya Ramsay MD INDICATION: Diagnosis of atrial fibrillation. Syncope. HEIGHT: 72 inches WEIGHT: 223 pounds. DIMENSIONS: IVS: 1.4 LV: 4.4 LVPW: 1.4 LA: 3.7 Aorta: 3.1 FINDINGS: The study is of acceptable technical quality, but for absence of subcostal and suprasternal views. Left ventricle is of normal size and overall hyperdynamic contractility with estimated left ventricular ejection fraction (LVEF) around 70%. Right ventricle appears normal size. Both atria appear also normal size. Aortic valve has three cusps and normal mobility, minimal sclerosis is noted. Mitral, tricuspid and pulmonic valves appear normal. There is an artifact in right-sided heart chamber most consistent with right-sided pacemaker lead. No pericardial effusion is noted. Inferior vena cava was not visualized. Aortic root is normal. Aortic arch and abdominal aorta were not seen. Doppler interrogation reveals competent aortic and mitral valves. There is trace tricuspid insufficiency. Calculated pulmonary artery pressure is within normal limits, but quality of TR jet was not great and consequently this should not be considered completely reliable. Pulmonic valve is functionally competent. Mitral inflow pattern and tissue Doppler imaging of mitral annulus reveal probably normal diastolic function even though septal tissue Doppler velocity is reduced (mitral E velocity: 70 A velocity: 57, E prime septal: 5.7, E prime lateral: 10.8 cm/s). CONCLUSIONS: 1. Study is of acceptable technical quality. 2. Normal LV size with mild to moderate left ventricular hypertrophy (LVH) and hyperdynamic LV systolic function, estimated LVEF 70%. Probably normal diastolic function. 3. No significant valvular disease. 4. Unable to estimate central venous pressure. 5. Suggestive of normal pulmonary artery pressure. COMMENT: Subacute bacterial endocarditis (SBE) prophylaxis is not recommended.
[2017-09-14 22:00] VITALS: BP 134/82
[2017-09-15 06:00] VITALS: BP 131/82
[2017-09-15 06:48] LABS: MEAN CORPUSCULAR HGB CONC 35.8 g/dl (32.0-36.5); MEAN CORPUSCULAR VOLUME 86.6 fl (80.0-96.0); PLATELET COUNT, AUTOMATED 195 10^3/uL (150-450); RED CELL DISTRIBUTION WIDTH 12.1 % (11.5-14.5); WHITE BLOOD COUNT 6.9 10^3/uL (4.0-10.0)
[2017-09-15 07:11] LABS: ALBUMIN 3.8 GM/DL (3.2-5.2); ANION GAP 8 MEQ/L (8-16); BLOOD UREA NITROGEN 14 MG/DL (7-18); CALCIUM LEVEL 9.3 MG/DL (8.5-10.1); CARBON DIOXIDE LEVEL 26 MEQ/L (21-32); CHLORIDE LEVEL 108 MEQ/L (98-107); GLOMERULAR FILTRATION RATE > 60.0 (>60); GLUCOSE, FASTING 87 MG/DL (70-105); PHOSPHORUS LEVEL 3.9 MG/DL (2.5-4.9); POTASSIUM SERUM 4.2 MEQ/L (3.5-5.1); SODIUM LEVEL 142 MEQ/L (136-145)
[2017-09-15] MEDS: ATORVASTATIN 20 MG TAB PO SCH (08:34)
[2017-09-15] MEDS: DOCUSATE SODIUM 100 MG CAP PO SCH (08:34)
[2017-09-15 08:35] VITALS: BP 131/82
[2017-09-15] MEDS: ENOXAPARIN 40 MG/0.4 ML SYRINGE (J1650) SC SCH ×2 (08:35→08:39)
[2017-09-15] MEDS: ASPIRIN 81 MG ENTERIC TAB PO SCH (08:36)
[2017-09-15] MEDS: HALOPERIDOL 2 MG TAB PO SCH ×2 (08:37→16:00)
[2017-09-15] MEDS: FLUoxetine 20 MG CAP PO SCH (08:37)
--- NOTE | 2017-09-15 10:07 | EEG ---
DATE OF EE09/14/2017 REFERRING PHYSICIAN: Sanya Ramsay DO DIAGNOSIS: Altered mental status, rule out seizures. EEG NUMBER: [id number] HISTORY: The patient is a 46-year-old man who was admitted at [facility] due to altered mental status, psychosis and hallucinations. He is currently on Prozac, Haldol, Ativan, amlodipine, aspirin, etc. This EEG was done to rule out epileptic potential. TECHNICAL DESCRIPTION: This digital EEG was recorded by 21 scalp ear and 2 EKG electrodes and was reviewed in bipolar and referential montages following reformatting in 10-20 international electrode placement system. INTERPRETATION: The patient was noted to be in awake and drowsy states during this EEG. Resting awake background rhythm consisted of well-formed posterior dominant rhythm with anterior/posterior gradient comprising of 11 Hz alpha activity measuring 15-40 microvolts in amplitude, which was symmetric and reactive to eye opening. Attenuation of posterior dominant rhythm was seen during transition into drowsiness. Anteriorly low voltage and mixed frequency activity was noted. Stage 1 and 2 sleep were reviewed and were symmetric bilaterally. Hyperventilation elicited mild theta slowing of background rhythm. Photic stimulation at 3-30 Hz elicited symmetric photic driving, especially at mid frequencies. EKG revealed normal sinus rhythm. No focal, lateralizing or epileptiform abnormalities were seen. No clinical or electrographic seizures were recorded. CONCLUSION: This EEG in awake, drowsy states, stage 1 and 2 sleep is within normal limits.
--- NOTE | 2017-09-15 12:23 | MHIPNPDOC ---
[facility] Progress Note Progress Note DATE OF SERVICE: 09/15/17 HISTORY: Patient is alert and oriented today, not confused, appropriately behaved. Patient remembers his behavior from two days ago, apologizes for how he was acting. Denies any psychiatric symptoms today, other than that he feels like he is slowly coming out of a fog. VITAL SIGNS: See below. NEW TEST RESULTS: negative CTx2 CURRENT MEDICATIONS: See below. MENTAL STATUS EXAMINATION: Behavior: calm, cooperative, related Speech: normal RRVT Thought processes including: linear Thought content: appropriate to conversation Judgment: good Insight: fair Orientation: AAOx3 Mood: OK. Affect: neutral, full range Can perform serial 3s, can repeat series of 5 numbers, can repeat series of 3 numbers backwards, 3/3 registration and recall DIAGNOSES: 1. Brief psychotic episode ASSESSMENT: Patient's disinhibited and psychotic state has resolved. Brief psychotic episode has unclear cause, may be substance induced (MJ) vs related to brain trauma from fall. If it is substance induced, more likely from MJ creating manic switch rather than primary psychotic or mood disorder, given his age and the acuity of his symptoms. MANAGEMENT PLAN: - No need for standing psychiatric medications outpatient - Safe to discharge from psychiatric perspective - Primary team to advise patient's to bring patient to the ED if symptoms resume TIME SPENT: 25 minutes. Vital Signs Vital Signs Date Time Temp Pulse Resp B/P (MAP) Pulse Ox O2 Delivery O2 Flow Rate FiO2 09/15/17 08:35 68 131/82 09/15/17 06:00 97.8 20 98 Room Air Laboratory Data 24H Labs Laboratory Tests 2 09/15/17 06:24: Nucleated Red Blood Cells % (auto) 0.0, Blood Urea Nitrogen 14, Creatinine 0.90 , Sodium Level 142, Potassium Level 4.2, Chloride Level 108H, Carbon Dioxide Level 26, Anion Gap 8, Glomerular Filtration Rate > 60.0, Calcium Level 9.3, Phosphorus Level 3.9, Albumin 3.8 CBC/BMP Laboratory Tests 09/15/17 06:24 Red Blood Count 5.00, Mean Corpuscular Volume 86.6, Mean Corpuscular Hemoglobin 31.0, Mean Corpuscular Hemoglobin Concent 35.8, Red Cell Distribution Width 12.1 , Anion Gap 8 Current Medications Current Medications Acetaminophen (Tylenol Tab) 650 mg Q4HP PRN PO MILD PAIN OR FEVER; Start at 13:00; Stop 10/12/17 at 12:59 Amlodipine Besylate (Norvasc) 2.5 mg DAILY PO Last administered on 09/15/17 08:35; Start 09/12/17 at 18:00; Stop 10/12/17 at 17:59 Aspirin (Ecotrin) 81 mg DAILY PO Last administered on 09/15/17 08:36; Start 09/12/17 at 18:00; Stop 10/12/17 at 17:59 Atorvastatin Calcium (Lipitor) 40 mg DAILY PO Last administered on 09/15/17 08:34; Start 09/13/17 at 09:00; Stop 10/13/17 at 08:59 Diphenhydramine HCl (Benadryl) 50 mg Q6HP PRN IM AGITATION; Start 09/13/17 at 13:15; Stop 10/13/17 at 13:14 Docusate Sodium (Colace) 100 mg BID PO Last administered on 09/15/17 08:34; Start 09/12/17 at 21:00; Stop 10/12/17 at 20:59 Enoxaparin Sodium (Lovenox) 40 mg DAILY SC ; Start 09/13/17 at 09:00; Stop at 08:59 Fluoxetine HCl (PROzac) 20 mg DAILY PO Last administered on 09/13/17 08:46; Start 09/13/17 at 09:00; Stop 10/13/17 at 08:59 Haloperidol (Haldol) 2 mg Q4HP PRN PO AGITATION; Start 09/13/17 at 13:15; Stop 10/13/17 at 13:14 Haloperidol (Haldol) 2 mg TID PO ; Start 09/13/17 at 09:00; Stop 09/13/17 at 13:08; Status DC Haloperidol (Haldol) 2 mg TID PO Last administered on 09/13/17 20:02; Start 09/13/17 at 16:00; Stop 10/13/17 at 15:59 Haloperidol (Haldol) 5 mg Q6HP PRN IM AGITATION; Start 09/13/17 at 13:15; Stop 10/13/17 at 13:14 Haloperidol (Haldol) 5 mg STAT STAT IM Last administered on 09/13/17 12:43; Start 09/13/17 at 12:43; Stop 09/13/17 at 12:44; Status DC Home Med (Med Rec Complete!) ASDIRECTED XX ; Start 09/12/17 at 16:45; Stop 09/12/17 at 16:57; Status DC Lorazepam (Ativan) 2 mg Q6HP PRN IM AGITATION; Start 09/13/17 at 13:15; Stop 09/20/17 at 13:14 Lorazepam (Ativan) 2 mg Q6HP PRN IV AGITATION; Start 09/13/17 at 10:00; Stop 09/13/17 at 13:08; Status DC Lorazepam (Ativan) 2 mg STAT STAT IM Last administered on 09/13/17 12:43; Start 09/13/17 at 12:43; Stop 09/13/17 at 12:44; Status DC Lorazepam (Ativan) 2 mg STAT STAT IV ; Start 09/13/17 at 09:50; Stop at 09:54; Status DC Nitroglycerin (Nitrostat (1/ 150)) 0.4 mg Q5MP PRN SL CHEST PAIN; Start at 17:30; Stop 10/12/17 at 17:29 Ondansetron HCl (Zofran) 4 mg Q6HP PRN PO NAUSEA OR VOMITING; Start 09/12/17 at 13:00; Stop 09/13/17 at 09:55; Status DC Risperidone (RisperDAL) 0.25 mg BID PO Last administered on 09/13/17 08:46; Start 09/12/17 at 21:00; Stop 09/13/17 at 09:55; Status DC Allergies Coded Allergies: No Known Allergies (Unverified , 04/25/14) MARY KAY DE LA TORRE MD Sep 15, 2017 12:23
[2017-09-15 14:00] VITALS: BP 124/80
--- NOTE | 2017-09-15 16:55 | DS.PDOC ---
Discharge Summary General Date of Admission Sep 12, 2017 at 15:09 Date of Discharge 09/15/17 Specialist/Consultants Involve Dr. Parks, Dr. Paz of Neurology. Dr. Hurley of Psychiatry. Discharge Summary PROCEDURES PERFORMED DURING STAY: None. ADMITTING/DISCHARGE DIAGNOSES Syncopal episode Brief psychotic episode COMPLICATIONS/CHIEF COMPLAINT: Pacemaker Malfunction. HISTORY OF PRESENT ILLNESS: . 46-year-old male with past medical history of atrial fibrillation status post pacemaker placement, hypertension, dyslipidemia, PTSD, generalized anxiety disorder, depression with suicidal ideations in the past, and adjustment disorder presented to the ER from the emergency department at [facility], [place] for complaints of confusion and a syncopal episode. According to records, the patient's states that the patient was smoking marijuana through a vaporizer with a few friends. The patient subsequently started to display bizarre behavior, and had a syncopal episode with no seizure-like activity. The patient was sent to [facility] for evaluation of the patient's pacemaker for concern of malfunction. During hospitalization, the patient was evaluated by cardiology and his pacemaker was noted to be functionally adequately. As for the patient's bizarre behavior which included hypervigilant/manic episodes with disinhibition and euphoria, the patient was seen by neurology and psychiatry. A CT scan of the head which was done on 2 occasions revealed no acute findings. An MRI of the brain could not be done due to the patient's pacemaker. In addition, an EEG was also obtained which revealed no acute findings. Upon evaluation today, the patient's mentation has returned back to its baseline. Upon further questioning , the patient stated that he was sorry for his actions over the weekend, and notes that he has been under significant stress from work related issues, and notes that had caused him to have a "mental breakdown." The patient was reevaluated by psychiatry today, and has been deemed safe for discharge home. In addition, I did discuss the case with Dr. Paz of Neurology, and given the patient's essentially negative medical workup here the patient has been optimized for medical discharge here. I did call the patient's significant other Cherie Marcus, and discussed our findings here at [facility]. All questions were answered to her satisfaction. I have advised the patient, and his significant other to abstain from further marijuana use. In addition, the patient has been advised to follow-up with his primary care physician within 7 days. He and his significant other were consulted to return to the ER for return of the aforementioned bizarre behavior, or for any acute emergencies. DISCHARGE MEDICATIONS: Please see below. ALLERGIES: Please see below. PHYSICAL EXAMINATION ON DISCHARGE: VITAL SIGNS: Please see below. GENERAL: Awake, alert, oriented 4 NECK: No JVD CARDIOVASCULAR EXAMINATION: Normal rate, normal S1, S2 RESPIRATORY EXAMINATION: Clear to auscultation bilaterally ABDOMINAL EXAMINATION: Soft, nontender, nondistended EXTREMITIES: No erythema, no tenderness LABORATORY DATA: Please see below. IMAGING: REASON: Altered mental status. TECHNIQUE: 4.5 mm contiguous transaxial sections were obtained from the skull base to the cerebral convexities with thin cuts through the posterior fossa without the administration of intravenous contrast. FINDINGS: The ventricles and sulci are consistent with the patient's age. There are no extra-axial fluid collections. There is no mass effect. The deep cerebral white matter is consistent with the patient's age. The orbital and petrous structures, cerebellopontine angles, and posterior fossa are unremarkable. The sella turcica, cavernous, and paracavernous structures are essentially unremarkable. The visualized portions of the paranasal sinuses and mastoid air cells are clear. Images of the skull base show no gross abnormality. IMPRESSION: Essentially unremarkable CT examination of the brain. DIAGNOSIS: Altered mental status, rule out seizures. EEG NUMBER: [id number] HISTORY: The patient is a 46-year-old man who was admitted at [facility] due to altered mental status, psychosis and hallucinations. He is currently on Prozac, Haldol, Ativan, amlodipine, aspirin, etc. This EEG was done to rule out epileptic potential. TECHNICAL DESCRIPTION: This digital EEG was recorded by 21 scalp ear and 2 EKG electrodes and was reviewed in bipolar and referential montages following reformatting in 10-20 international electrode placement system. INTERPRETATION: The patient was noted to be in awake and drowsy states during this EEG. Resting awake background rhythm consisted of well-formed posterior dominant rhythm with anterior/posterior gradient comprising of 11 Hz alpha activity measuring 15-40 microvolts in amplitude, which was symmetric and reactive to eye opening. Attenuation of posterior dominant rhythm was seen during transition into drowsiness. Anteriorly low voltage and mixed frequency activity was noted. Stage 1 and 2 sleep were reviewed and were symmetric bilaterally. Hyperventilation elicited mild theta slowing of background rhythm. Photic stimulation at 3-30 Hz elicited symmetric photic driving, especially at mid frequencies. EKG revealed normal sinus rhythm. No focal, lateralizing or epileptiform abnormalities were seen. No clinical or electrographic seizures were recorded. CONCLUSION: This EEG in awake, drowsy states, stage 1 and 2 sleep is within PROGNOSIS: Fair ACTIVITY: As tolerated. DIET: . Regular diet DISCHARGE PLAN: DISPOSITION: . Home DISCHARGE INSTRUCTIONS: I have advised the patient, and his significant other to abstain from further marijuana use. In addition, the patient has been advised to follow-up with his primary care physician within 7 days. He and his significant other were consulted to return to the ER for return of the aforementioned bizarre behavior , or for any acute emergencies. DISCHARGE CONDITION: Stable. TIME SPENT ON DISCHARGE: Greater than 30 minutes. Vital Signs/I&Os Vital Signs Date Time Temp Pulse Resp B/P (MAP) Pulse Ox O2 Delivery O2 Flow Rate FiO2 09/15/17 14:00 98.1 93 20 124/80 (95) 100 Room Air I&O- Last 24 Hours up to 6 AM 09/16/17 06:00 Intake Total 360 ml Balance 360 ml Laboratory Data Labs 24H Laboratory Tests 2 09/15/17 06:24: Nucleated Red Blood Cells % (auto) 0.0, Blood Urea Nitrogen 14, Creatinine 0.90 , Sodium Level 142, Potassium Level 4.2, Chloride Level 108H, Carbon Dioxide Level 26, Anion Gap 8, Glomerular Filtration Rate > 60.0, Calcium Level 9.3, Phosphorus Level 3.9, Albumin 3.8 CBC/BMP Laboratory Tests 09/15/17 06:24 Red Blood Count 5.00, Mean Corpuscular Volume 86.6, Mean Corpuscular Hemoglobin 31.0, Mean Corpuscular Hemoglobin Concent 35.8, Red Cell Distribution Width 12.1 , Anion Gap 8 Discharge Medications Scheduled Atorvastatin Calcium (Atorvastatin Calcium) 40 Mg Tab, 40 MG PO DAILY, (Reported ) Fluoxetine Hcl (Fluoxetine HCl) 20 Mg Cap, 20 MG PO DAILY, (Reported) Scheduled PRN Nitroglycerin (Nitrostat) 0.4 Mg Subl, 0.4 MG SL NITRO PRN for CHEST PAIN, ( Reported) Allergies Coded Allergies: No Known Allergies (Unverified , 04/25/14) SHERRY HILL MD Sep 15, 2017 16:55
== END 2017-09-15 17:00 | disposition home or self-care (01) ==
LOC: M ICU 15:09 → M PCU 16:44 → M MSPAV 09-14 12:15
PROVIDERS: ADMIT Hospitalist; ATTEND Internal Medicine
DX: R55 Syncope and collapse (principal); G93.41 Metabolic encephalopathy; T82.529A Displacement of unspecified cardiac and vascular devices and implants, initial encounter; I48.0 Paroxysmal atrial fibrillation; F23 Brief psychotic disorder; S00.83XA Contusion of other part of head, initial encounter; I10 Essential (primary) hypertension; E78.5 Hyperlipidemia, unspecified; E80.6 Other disorders of bilirubin metabolism; F12.10 Cannabis abuse, uncomplicated; F43.10 Post-traumatic stress disorder, unspecified; F41.1 Generalized anxiety disorder; F43.20 Adjustment disorder, unspecified; W18.30XA Fall on same level, unspecified, initial encounter; Y92.9 Unspecified place or not applicable; Y99.9 Unspecified external cause status; Y93.9 Activity, unspecified; Y83.1 Surgical operation with implant of artificial internal device as the cause of abnormal reaction of the patient, or of later complication, without mention of misadventure at the time of the procedure; Z95.0 Presence of cardiac pacemaker; Z79.82 Long term (current) use of aspirin; Z79.899 Other long term (current) drug therapy
CPT/HCPCS: 36415; 70450; 80069; 85027; 93306; 96372; J1630; J2060

== ENCOUNTER → 2018-03-15 | Outpatient (CLI) | payer OTHER | LOC: M RAD 08:47 | DX: I65.9 Occlusion and stenosis of unspecified precerebral artery (principal) | CPT/HCPCS: 93880 ==